=== PATIENT | female | born 2000 | race Caucasian/White ===

== ENCOUNTER 2023-06-25 08:48 | Outpatient (CLI) | payer OTHER, SELFPAY ==
--- NOTE | 2023-06-25 09:00 | CRLHL7_ITS ---
For Patients: As a result of the Century Cures Act, medical imaging exams and procedure reports are released immediately into your electronic medical record. You may view this report before your referring provider. If you have questions, please contact your health care provider. INDICATION: LOCALIZED SWELLING/MASS COMPARISON: Skull films 06/18/2023 TECHNIQUE: A CT volumetric acquisition was performed of the brain without IV contrast. Please note that all CT scans at this facility use dose modulation, iterative reconstruction, and/or weight-based dosing when appropriate to reduce radiation dose to as low as reasonably achievable. FINDINGS: The CT images reveal a normal appearance of the cerebral ventricles and basal cisterns. There is no evidence of intracranial hemorrhage, tissue infarction or mass effect. The mastoid air cells and middle ear cavities are clear. 2.5 x 0.8 cm sessile juxta cortical sclerotic mass arising from the outer table of the left parietal bone. No suspicious findings. There is normal aeration of the visualized paranasal sinuses. IMPRESSION: Benign left parietal skull vault osteoma. Brain parenchyma normal. If this is symptomatic, surgical excision could be considered. Please note that all CT scans at this facility use dose modulation, iterative reconstruction, and/or weight-based dosing when appropriate to reduce radiation dose to as low as reasonably achievable. Dictated by Calixto Cardoso MD @ 06/25/2023 10:53:58 AM (Electronically Signed)
== END 2023-06-25 08:49 | disposition home or self-care (01) ==
LOC: CT 08:50
PROVIDERS: PCP Family Medicine; Visit Provider Family Medicine
DX: R22.0 Localized swelling, mass and lump, head (principal); D16.4 Benign neoplasm of bones of skull and face
CPT/HCPCS: 70450